=== PATIENT | male | born 1955 | race Caucasian/White ===

== ENCOUNTER 2016-10-24 16:57 | Emergency (ER) | payer OTHER ==
[~2016-10-24] VITALS: Ht 177.8 cm; Wt 86.2 kg
[~2016-10-24 16:57] MED LIST: ASPIRIN EC325 M1 PO; ATENOLOL25 MG PO; CLARITIN-D 10 M1 T24 PO; CO-Q-10 100 MG-1 SGL PO; CYMBALTA30 MG PO; LISINOPRIL/HCTZ1 TA3 PO; LOTRISONE 0.05%1 CRE TP; NORVASC 5MG. TAB5 MG PO; PLAVIX 75MG TAB75 MG PO; PRAVACHOL 40MG40 MG PO; TYLENOL PM EXTR1 TAB PO
--- NOTE | 2016-10-24 18:21 | Emergency Room Report ---
History of Present Illness Time Seen by [id number] Presenting Problem in Triage Pt arrived: Presenting Problem: Onset of symptoms date/time:/ or onset unknown for: Treatment Prior to Arrival: [employer] L[employer] Provided by: Sepsis Risk Assessment: Temp: B/P: MAP: Pulse: Resp: Recent fever? Clinical Suspician of Infection? Mental Status: Sepsis Risk: Have you (or family members/close friends) recently traveled outside the [place]? If Yes, where/when: Have you had exposure to infectious disease within the past month? TB? Other? Specify: Source patient, RN notes reviewed Exam Limitations no limitations Comment Severe pain in left flank and into lower abdomen while driving today from [place]. He thought he had possibly hurt his back yesterday while lifting stuff in his barn but no pain until today. History of blood in urine in past but never told he had a kidney stone. NO nausea or vomiting and no fever and no diarrhe. Cardiac Chest Pain Chest pain indicative of cardiac No ALLERGIES Coded Allergies: No Known Allergies (10/24/16) Home Medications Reported Medications Metformin HCl (Metformin) 500 MG PO BID Sertraline Hydrochloride (Sertraline 100MG) 100 MG PO DAILY PRAVASTATIN SODIUM (Pravastatin Sodium) 40 MG PO QHS Amlodipine Besylate (Norvasc) 5 MG PO DAILY Lisinopril & Hctz (Lisinopril-Hctz 10-12.5 MG Tab) 1 TAB PO DAILY History Medical History General Angina: No OK: Yes Hypertension? Yes Hyperlipidemia? Yes CHF? No COPD? No Asthma? No Hernia? Yes CVA? No Seizures? No Diabetes? No UTI? No Stones? No GB Disease: No Hepatitis? No Cataracts? Yes Glaucoma? No TB? No Cancer? No Immunization Hx DT/Tetanus UNKNOWN Flu THISFLUSEA Pneumonia Received In Past Surgical Hx Previous Surgery?Y RT HERNIA REPAIR SINUS SURGERY CARDIAC STENTS X2 Family History Family Hx Diabetes Yes CAD Yes Hypertension Yes Hyperlipidemia No Cancer Yes TB No Social History Alcohol Alcohol: No Review of Systems All Other Systems Reviewed and Negative Constitutional see HPI Gastrointestinal see HPI Musculoskeletal see HPI Physical Exam Vital Signs Vital Signs Date Time Temp Pulse Resp B/P Pulse O2 O2 Flow FiO2 Ox Delivery Rate 10/24 1905 18 10/24 1850 98.5 65 18 140/76 96 General Appearance normal appearance, WD/WN, mild distress Respiratory Status No: respiratory distress. 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 Yes Chan was queried for this patient? Yes Reference #: [id number] Risks/benefits of using a controlled substance for treatment were not discussed w/pt Results/Orders Laboratory Tests 10/24/161834: Sodium 140, Potassium 3.4 L, Chloride 102, Carbon Dioxide 30, BUN 16, Creatinine 1.3, Estimated Creat Clear 71, Estimated GFR (MDRD) 56, Glucose 179 H, Calcium 8.5, Total Bilirubin 0.5, AST 14 L, ALT 26, Alkaline Phosphatase 91, Total Protein 6.2 L, Albumin 3.6, Globulin 2.6, Albumin/Globulin Ratio 1.4, WBC 10.6, RBC 5.13, Hgb 14.3, Hct 44.3, MCV 86.3, RDW 15.1, Plt Count 172, MPV 8.7, Gran % 86.7 H, Gran # 9.2 H, Total Counted 100, Lymphocytes % 7.0 L, Monocytes % 5.0, Eosinophils % 1.0, Basophils % 0.3, Neutrophils 83 H, Lymphocytes (Manual) 12, Lymphocytes # 0.7, Monocytes (Manual) 4, Monocytes # 0.5, Eosinophils # 0.1, Basophils # 0.0, Metamyelocytes 1, Platelet Estimate NORMAL, Poikilocytosis 1+, PUBS MCHC 32.3, MCH 27.9 Current Medication Orders Sig/Jai Start time Last Medication Dose Route Stop Time Status Admin Ketorolac 0 .STK-MED ONE 10/24 1902 DC Tromethamine .ROUTE Sodium Chloride 1,000 ML .STK-MED ONE 10/24 1901 DC IV Ketorolac 30 MG ONCE ONE 10/24 183 DC 10/24 Tromethamine IV 10/24 183 1905 Sodium Chloride 10 ML PRN PRN 10/24 1830 AC IV 10/25 181 Sodium Chloride 1,000 ML .Q4H 10/24 1830 AC 10/24 IV 10/24 2229 1906 Sodium Chloride 10 ML PRN PRN 10/24 1830 AC IV 10/25 181 Orders Procedure Date/time Status DIET-NOTHING BY MOUTH 10/25 B Active DIFFERENTIAL-WBC 10/[address] ABD & PELVIS W/O CONTRAST 10/[address] ABD/PELVIS REQ 10/24 1819 Complete IV SALINE LOCK 10/24 1819 Active URINALYSIS/COMPLETE 10/24 1819 Active CBC WITH AUTO DIFF 10/24 1819 Complete CHEM 12 PROFILE 10/24 1819 Complete XRAY/CT/US XRAY/CT/US CT abdomen, pelvis CT interpretation by reviewed by me Time results known: 1947 CT Results ? 5 to 6 mm stone in left mid ureter with left hydronephrosis Departure Departure Time of Disposition 1948 Disposition DC Home or Self Care(routine) Clinical Impression Primary Impression: Left ureteral stone Condition STABLE Referrals Devante BOSCH,Agnieszka Miller (Family): 4 Days-Call Office Patient Instructions DI for Kidney Stones, Extracorporeal Shock Wave Lithotripsy , Kidney Stones (Alternative Therapy), Kidney Stones -- Adult Additional Instructions Strain all urine and if stone is caught, take to PCP to send for analysis. Use meds as directed and if pain recurs, followup with Urologist JAIME Discharge Counseling Counseled pt/family regarding diagnosis, test results, medications/RX, home care, follow up needs Prescriptions Current Visit Scripts OXYCODONE HCL/ACETAMINOPHEN (Percocet 5-325 MG Tablet) 1 TAB PO Q4HP PRN pain #20 TAB ED Critical Care Critical Care No If Critical Care minutes are documented, the time involved in the performance of seperately reportable procedures was not counted toward critical care time documented. I directly delivered medical care to this critically ill and/or injured patient. Timely evaluation and treatment was necessary to address the significant organ system(s) dysfunction present in this patient. at 1953
--- NOTE | 2016-10-24 18:21 | Emergency Room Report ---
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 Clinical Suspician of Infection? Mental Status: Sepsis Risk: Have you (or family members/close friends) recently traveled outside the [place]? If Yes, where/when: Have you had exposure to infectious disease within the past month? TB? Other? Specify: Source patient, RN notes reviewed Exam Limitations no limitations Comment Severe pain in left flank and into lower abdomen while driving today from [place]. He thought he had possibly hurt his back yesterday while lifting stuff in his barn but no pain until today. History of blood in urine in past but never told he had a kidney stone. NO nausea or vomiting and no fever and no diarrhe. Cardiac Chest Pain Chest pain indicative of cardiac No ALLERGIES Coded Allergies: No Known Allergies (10/24/16) Home Medications Reported Medications Metformin HCl (Metformin) 500 MG PO BID Sertraline Hydrochloride (Sertraline 100MG) 100 MG PO DAILY PRAVASTATIN SODIUM (Pravastatin Sodium) 40 MG PO QHS Amlodipine Besylate (Norvasc) 5 MG PO DAILY Lisinopril & Hctz (Lisinopril-Hctz 10-12.5 MG Tab) 1 TAB PO DAILY History Medical History General Angina: No AL: Yes Hypertension? Yes Hyperlipidemia? Yes CHF? No COPD? No Asthma? No Hernia? Yes CVA? No Seizures? No Diabetes? No UTI? No Stones? No GB Disease: No Hepatitis? No Cataracts? Yes Glaucoma? No TB? No Cancer? No Immunization Hx DT/Tetanus UNKNOWN Flu THISFLUSEA Pneumonia Received In Past Surgical Hx Previous Surgery?Y RT HERNIA REPAIR SINUS SURGERY CARDIAC STENTS X2 Family History Family Hx Diabetes Yes CAD Yes Hypertension Yes Hyperlipidemia No Cancer Yes TB No Social History Alcohol Alcohol: No Review of Systems All Other Systems Reviewed and Negative Constitutional see HPI Gastrointestinal see HPI Musculoskeletal see HPI Physical Exam Vital Signs Vital Signs Date Time Temp Pulse Resp B/P Pulse O2 O2 Flow FiO2 Ox Delivery Rate 10/24 1905 18 10/24 1850 98.5 65 18 140/76 96 General Appearance normal appearance, WD/WN, mild distress Respiratory Status No: respiratory distress. 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 Yes Chan was queried for this patient? Yes Reference #: [id number] Risks/benefits of using a controlled substance for treatment were not discussed w/pt Results/Orders Laboratory Tests 10/24/161834: Sodium 140, Potassium 3.4 L, Chloride 102, Carbon Dioxide 30, BUN 16, Creatinine 1.3, Estimated Creat Clear 71, Estimated GFR (MDRD) 56, Glucose 179 H, Calcium 8.5, Total Bilirubin 0.5, AST 14 L, ALT 26, Alkaline Phosphatase 91, Total Protein 6.2 L, Albumin 3.6, Globulin 2.6, Albumin/Globulin Ratio 1.4, WBC 10.6, RBC 5.13, Hgb 14.3, Hct 44.3, MCV 86.3, RDW 15.1, Plt Count 172, MPV 8.7, Gran % 86.7 H, Gran # 9.2 H, Total Counted 100, Lymphocytes % 7.0 L, Monocytes % 5.0, Eosinophils % 1.0, Basophils % 0.3, Neutrophils 83 H, Lymphocytes (Manual) 12, Lymphocytes # 0.7, Monocytes (Manual) 4, Monocytes # 0.5, Eosinophils # 0.1, Basophils # 0.0, Metamyelocytes 1, Platelet Estimate NORMAL, Poikilocytosis 1+, PUBS MCHC 32.3, MCH 27.9 Current Medication Orders Sig/Jai Start time Last Medication Dose Route Stop Time Status Admin Ketorolac 0 .STK-MED ONE 10/24 1902 DC Tromethamine .ROUTE Sodium Chloride 1,000 ML .STK-MED ONE 10/24 1901 DC IV Ketorolac 30 MG ONCE ONE 10/24 183 DC 10/24 Tromethamine IV 10/24 183 1905 Sodium Chloride 10 ML PRN PRN 10/24 1830 AC IV 10/25 181 Sodium Chloride 1,000 ML .Q4H 10/24 1830 AC 10/24 IV 10/24 2229 1906 Sodium Chloride 10 ML PRN PRN 10/24 1830 AC IV 10/25 181 Orders Procedure Date/time Status DIET-NOTHING BY MOUTH 10/25 B Active DIFFERENTIAL-WBC 10/[address] ABD & PELVIS W/O CONTRAST 10/[address] ABD/PELVIS REQ 10/24 1819 Complete IV SALINE LOCK 10/24 1819 Active URINALYSIS/COMPLETE 10/24 1819 Active CBC WITH AUTO DIFF 10/24 1819 Complete CHEM 12 PROFILE 10/24 1819 Complete XRAY/CT/US XRAY/CT/US CT abdomen, pelvis CT interpretation by reviewed by me Time results known: 1947 CT Results ? 5 to 6 mm stone in left mid ureter with left hydronephrosis Departure Departure Time of Disposition 1948 Disposition DC Home or Self Care(routine) Clinical Impression Primary Impression: Left ureteral stone Condition STABLE Referrals Devante BOSCH,Agnieszka Miller (Family): 4 Days-Call Office Patient Instructions DI for Kidney Stones, Extracorporeal Shock Wave Lithotripsy , Kidney Stones (Alternative Therapy), Kidney Stones -- Adult Additional Instructions Strain all urine and if stone is caught, take to PCP to send for analysis. Use meds as directed and if pain recurs, followup with Urologist JAIME Discharge Counseling Counseled pt/family regarding diagnosis, test results, medications/RX, home care, follow up needs Prescriptions Current Visit Scripts OXYCODONE HCL/ACETAMINOPHEN (Percocet 5-325 MG Tablet) 1 TAB PO Q4HP PRN pain #20 TAB ED Critical Care Critical Care No If Critical Care minutes are documented, the time involved in the performance of seperately reportable procedures was not counted toward critical care time documented. I directly delivered medical care to this critically ill and/or injured patient. Timely evaluation and treatment was necessary to address the significant organ system(s) dysfunction present in this patient. at 1953
[2016-10-24 18:47] LABS: HEMOGLOBIN 14.3 g/dL (14.1-18.0); LYMPH # 0.7 K/mm3 (0.7-4.5)
[2016-10-24] MEDS ORDERED: METFORMIN 500M500 M1 PO (18:57)
[2016-10-24] MEDS ORDERED: SERTRALINE 100100 MG PO (18:58)
[2016-10-24 19:42] LABS: NEUTROPHILS 83 % (42-76)
[2016-10-24] MEDS ORDERED: PERCOCET1 TAB PO (19:51)
[2016-10-24 19:59] LABS: URINE BILIRUBIN - DIPSTICK NEGATIVE (NEG); URINE BLOOD 3+ (NEG)
[2016-10-24 20:16] VITALS: BP 161/90
--- NOTE | 2016-10-25 07:50 | RADIOLOGY REPORT PS360 ---
CT ABD PELVIS W/O CONTRAST CLINICAL INDICATION: Left flank pain FLANK PAIN ORDERING PHYSICIAN: Caroline Ospina MD PATIENT AGE: 61 years COMPARISON: 07/14/2013 TECHNIQUE: Axial images obtained with sagittal and coronal reformats. PROCEDURE: Oral Contrast: None IV Contrast: None . FINDINGS: Lower thorax: 2 noncalcified nodules left lower lobe stable 4 and 6 mm ABDOMEN: Liver: Stable 12 mm isodense nodule involving the right hepatic lobe at the gallbladder fossa Gallbladder: Nondistended. No radio opaque stones. Pancreas: No masses or peripancreatic fluid collections. Spleen: Unremarkable. Adrenals: Unremarkable Kidneys/ureters: 3 cm left renal cyst superiorly. Mild left hydronephrosis and proximal hydroureter secondary to a 5 mm stone in the proximal mid aspect of the left ureter at the L3-L4 level. There is mild stranding in the left perinephric and proximal periureteral fat. Nonobstructing right nephrolithiasis. Stomach bowel: Small gastric diverticulum. Colonic diverticulosis Appendix: No evidence of appendicitis. PELVIS: Reproductive: Unremarkable Bladder: Nondistended. No obvious stones or masses. ABDOMEN & PELVIS: Peritoneum: No abnormal fluid collections. No obvious inflammatory changes. No free air. Lymph nodes: No enlarged lymph nodes apparent. Vasculature: No evidence of abdominal aortic aneurysm. No retroperitoneal hemorrhage evident. Bones: No acute fracture Soft tissues: Soft tissue density is present in the left inguinal region probably related to prior inguinal surgery IMPRESSION: 1. 5 mm left mid proximal ureteral stone with hydroureteronephrosis and mild stranding of the perinephric and periureteral fat suggesting underlying inflammation/infection 2. Right nephrolithiasis. 3. Other nonacute findings as detailed above
== END 2016-10-24 20:17 | disposition home or self-care (01) ==
LOC: UTC 16:57 → ER 17:00 → UTC 17:00 → ER 20:17
PROVIDERS: General Practice
DX: N13.2 Hydronephrosis with renal and ureteral calculous obstruction (principal); I10 Essential (primary) hypertension

== ENCOUNTER → 2016-10-30 | Outpatient (CLI) | payer OTHER ==
[~2016-10-30] MED LIST changes: +METFORMIN 500M500 M1 PO; +PERCOCET1 TAB PO; +SERTRALINE 100100 MG PO
--- NOTE | 2016-10-30 11:22 | RADIOLOGY REPORT PS360 ---
CT ABD PELVIS W/O CONTRAST CLINICAL INDICATION: Follow-up left renal stone, left flank pain LEFT FLANK PAIN ORDERING PHYSICIAN: Agnieszka Low MD PATIENT AGE: 61 years COMPARISON: [id number] TECHNIQUE: Axial images obtained with sagittal and coronal reformats. PROCEDURE: Oral Contrast: None IV Contrast: None . FINDINGS: There is been overall no significant change in the mid left ureteral stone measuring probably 5 mm in the mid left ureter at the L2 4 level. The stone may have moved distally x 1 cm. There remains moderate left hydronephrosis and proximal hydroureter with stranding of the perirenal and proximal periureteral fat overall not significantly changed. A right renal calculus noted. Scattered small nodes are present in the mesentery's. No change bilateral lower lobe pulmonary nodules, gastric diverticulum, left renal cyst, scattered small nodes in the mesentery's, small periumbilical hernia, sigmoid diverticulosis. No evidence of diverticulitis or appendicitis. IMPRESSION: 1. Overall no significant change in the left mid ureteral stone with hydroureteronephrosis as described above.. 2. Other nonacute findings as described above
== END ==
LOC: RAD 07:59
DX: N20.0 Calculus of kidney (principal)

== ENCOUNTER → 2017-07-28 | Outpatient (CLI) | payer OTHER ==
--- NOTE | 2017-07-28 19:41 | RADIOLOGY REPORT PS360 ---
PROCEDURE: 2-D M-mode and color Doppler study INDICATIONS FOR THE TEST: Chest pain X COPD Heart Murmur Tobacco Smoking Palpitations Fatigue Syncope Edema HypertensionXDiabetes MellitusX Rheumatic Fever SOBXDOE Obesity HyperlipidemiaX Family History HD Additional History CAD PATIENT INFORMATION HEIGHT: 70 WEIGHT:195 GENDER: Male B/P:120/80 2-D/M-MODE INTERPRETATION: 2-D MEASUREMENTS OBSERVED VALUES IN CMS Right Ventricular Dimension (RVDd) 1.7 Interventricular Septum (Thickness)(IVsd) 1.1 Left Ventricular Internal Dimensions(LVIDd) 5.7 Left Ventricular Posterior Wall (Thickness)(LVPWd) 1.1 Aortic Root 3.3 Aortic Cusp Separation 1.9 Left Atrial Dimensions (LAD) 4.0 2D 1. Left atrium is mildly enlarged, left ventricle is normal size, mild concentric left ventricular hypertrophy present visually estimated ejection fraction of 55% with no obvious regional wall motion abnormality. 2. The right atrium and right ventricle are normal size and contractility. 3. The aortic valve is minimally thickened and fibrosed. 4. The mitral and tricuspid valvular grossly normal. 5. Pulmonic valve is poorly visualized. 6. No significant pericardial effusion noted. DOPPLER INTERROGATION: Doppler interrogation of the aortic, mitral and tricuspid valvular presence of mild mitral and tricuspid regurgitation, tricuspid and jet velocity is insufficient for calculation of the right ventricular systolic pressure, grade 1 diastolic dysfunction seen without tissue Doppler evidence of raised left atrial pressure. CONCLUSION: 1. Mildly enlarged left atrium, normal left ventricular size, mild concentric left ventricular hypertrophy, visually estimated ejection fraction 55% with no obvious regional wall motion abnormality, grade 1 diastolic dysfunction seen without tissue Doppler evidence of raised left atrial pressure. 2. Mild mitral and tricuspid regurgitation. 3. No significant pericardial effusion noted.
--- NOTE | 2017-07-30 11:33 | RADIOLOGY REPORT PS360 ---
SPECT MYOCARDIAL PERFUSION SCAN, REST AND STRESS: EXERCISE STRESS: [facility] REVIEW QGS EF AND WALL MOTION EVALUATION: QPS - PERFUSION EVALUATION: HISTORY: Chest pain, Abnormal EKG, HTN, CAD PROCEDURE: Rest imaging performed after administration of9.90 millicuries Tc MIBI. Dose administered at7:20 a.m., with imaging thereafter. Stress imaging was then performed following8 minutes of exercise stress. The patient achieved a heart [id number] with projected heart rate of133 . Resting BP168/85 with stress 192/88. At maximum exercise stress,30.0 millicuries Tc MIBI administered at9:00 a.m. with [id number] minutes thereafter. FINDINGS: Perfusion Evaluation: The single slice spect images as well as the [facility] bull's-eye data summary were reviewed. Wall Motion and Ejection Fraction Evaluation: Gated SPECT review and analysis used to evaluate these features. There is a 61 % left ventricular ejection fraction. There seems to be good wall motion Patient exercised 8 minutes on standard José Miguel protocol. EKG portion of this test was abnormal with ST segment depression at peak exercise which worsened late into recovery which was accompanied by short bursts of nonsustained ventricular tachycardia multiple PVCs. Ventricular ectopy PVCs couplets and triplets were accompanied x 2 mm of horizontal to downsloping ST depression in the left precordial leads. This is an abnormal high risk exercise stress test Stress images reveal moderately to severely reduced activity in the inferior wall while rest images reveal severely reduced activity in the inferior wall. Gated images calculated ejection fraction of 62% with normal wall motion IMPRESSION: This is an abnormal high risk stress test with significant reverse redistribution in the inferior wall. Exercise-induced nonsustained ventricular tachycardia with significant exercise induced ST segment depression
--- NOTE | 2017-07-30 11:33 | RADIOLOGY REPORT PS360 ---
SPECT MYOCARDIAL PERFUSION SCAN, REST AND STRESS: EXERCISE STRESS: [facility] REVIEW QGS EF AND WALL MOTION EVALUATION: QPS - PERFUSION EVALUATION: HISTORY: Chest pain, Abnormal EKG, HTN, CAD PROCEDURE: Rest imaging performed after administration of9.90 millicuries Tc MIBI. Dose administered at7:20 a.m., with imaging thereafter. Stress imaging was then performed following8 minutes of exercise stress. The patient achieved a heart [id number] with projected heart rate of133 . Resting BP168/85 with stress 192/88. At maximum exercise stress,30.0 millicuries Tc MIBI administered at9:00 a.m. with [id number] minutes thereafter. FINDINGS: Perfusion Evaluation: The single slice spect images as well as the [facility] bull's-eye data summary were reviewed. Wall Motion and Ejection Fraction Evaluation: Gated SPECT review and analysis used to evaluate these features. There is a 61 % left ventricular ejection fraction. There seems to be good wall motion Patient exercised 8 minutes on standard José Miguel protocol. EKG portion of this test was abnormal with ST segment depression at peak exercise which worsened late into recovery which was accompanied by short bursts of nonsustained ventricular tachycardia multiple PVCs. Ventricular ectopy PVCs couplets and triplets were accompanied x 2 mm of horizontal to downsloping ST depression in the left precordial leads. This is an abnormal high risk exercise stress test Stress images reveal moderately to severely reduced activity in the inferior wall while rest images reveal severely reduced activity in the inferior wall. Gated images calculated ejection fraction of 62% with normal wall motion IMPRESSION: This is an abnormal high risk stress test with significant reverse redistribution in the inferior wall. Exercise-induced nonsustained ventricular tachycardia with significant exercise induced ST segment depression
== END ==
LOC: RAD 06:55
DX: I20.9 Angina pectoris, unspecified (principal); I25.10 Atherosclerotic heart disease of native coronary artery without angina pectoris; I10 Essential (primary) hypertension; E78.5 Hyperlipidemia, unspecified; R53.83 Other fatigue; G47.33 Obstructive sleep apnea (adult) (pediatric); R94.31 Abnormal electrocardiogram [ECG] [EKG]
CPT/HCPCS: A9502

== ENCOUNTER → 2017-08-06 | Day surgery (SDC) | payer OTHER ==
[2017-08-06 07:54] LABS: HEMOGLOBIN 14.8 g/dL (14.1-18.0); LYMPH # 1.6 K/mm3 (0.7-4.5); LYMPH % 22.1 % (10-50)
[2017-08-06 08:02] LABS: BUN 9 mg/dL (7-18)
[2017-08-06 08:05] LABS: GFR (ESTIMATED) 85 ML/MIN (>60)
--- NOTE | 2017-08-06 09:11 | RADIOLOGY REPORT PS360 ---
CARDIAC CATHETERIZATION DATE OF CATHETERIZATION:08/06/2017 8:26 AM PROCEDURES: 1. Left heart catheterization 2. Left ventriculogram 3. Selective coronary angiogram 4. Drug-eluting stent deployment to the proximal mid ramus intermedius 5. Drug-eluting stent deployment to the mid dominant right coronary artery INDICATION FOR TEST: 1. Abnormal Myoview inferior wall ischemia 2. Coronary artery disease 3. Angina pectoris class III Informed consent was obtained prior to the procedure. COMPLICATIONS: None ESTIMATED BLOOD LOSS: Less than 10 ml. TECHNIQUE: One percent lidocaine used to anesthetize the right anterior aspect of the wrist. The right radial artery was accessed via the Seldinger technique. A 6 [place] sheath was placed in the right radial artery. 2.5 mg of verapamil, 800 mcg of nitroglycerin and 5000 U Heparin were given through the arterial sheath. The trap catheter was also used to perform left heart catheterization left ventriculogram and selective coronary angiogram. At the end of the diagnostic angiogram 4000 units of heparin was administered intravenously giving an ACT out of range. An Genprexari left guide catheter was placed into the left main artery and order to complete the diagnostic angiogram. Following this, a BMW wire was placed into the ramus intermedius and a 2.25 x 3 mm resolute [place] stent was deployed at 22 lisandro reducing the moderate and severe stenosis to 0%. ROSA ISELA-3 flow was present before and after the procedure. Following this the guide catheter was placed into the right coronary artery and the BMW wire was placed distally. A 3 mm x 38 mm resolute [place] stent was deployed at 20 lisandro reducing the hemodynamically severe stenosis to 0%. Excellent angiographic results were obtained with ROSA ISELA-3 flow down the vessel before and after the procedure. At the end of the procedure sheath was removed good hemostasis was achieved using TR banding patient transferred the postop holding area in stable condition. Brilinta 180 mg has ordered the saphenous patient is awake and able to tolerate by mouth. ANGIOGRAPHIC RESULTS: 1. The left main artery normal 2. The left anterior descending artery has very proximal 10% stenoses and then mid vessel diffuse 40% stenoses. 3. The ramus intermedius is a large vessel and has very proximal 50% stenoses followed by a focal concentric 70-80% stenosis followed by an additional 50% stenosis 4. The circumflex artery is a nondominant vessel has proximal 30-40% and mid vessel 30% stenoses 5. The right coronary artery is a dominant vessel and has a stent in the proximal segment which is widely patent free of in-stent restenosis. Distal to the stent there is a concentric 60-70% stenosis followed by additional 40% stenoses 6. The ROSS ventriculogram reveals normal 65% 7. The left ventricular end-diastolic pressure 10 mmHg IMPRESSION: 1. Severe 2 vessel coronary artery disease involving the dominant right coronary artery and the large ramus intermedius as described above 2. Successful stenting of the proximal to mid ramus intermedius severe disease reduced to 0% with 1 drug-eluting stent 3. Hemodynamically severe disease with corresponding abnormal inferior wall ischemia on Myoview combined with 60-70% stenosis of the dominant right coronary artery reduced to 0% with 1 drug-eluting stent 4. Persistent moderate coronary disease as described above 5. Normal ejection fraction 6. Normal left ventricular end-diastolic pressure PLAN: 1. Brilinta and aspirin 2. LDL less than 55 3. Very aggressive risk factor modification 4. Cardiac rehabilitation 5. Avoidance of tobacco products
[2017-08-06 14:43] VITALS: BP 140/75
== END ==
LOC: CATHLAB 07:22
PROVIDERS: Internal Medicine; Internal Medicine Cardiovascular Disease
PROC: B2111ZZ Fluoroscopy of Multiple Coronary Arteries using Low Osmolar Contrast (ICD-10-PCS; 2017-08-06)
PROC: B2151ZZ Fluoroscopy of Left Heart using Low Osmolar Contrast (ICD-10-PCS; 2017-08-06)
PROC: 027135Z Dilation of Coronary Artery, Two Arteries with Two Drug-eluting Intraluminal Devices, Percutaneous Approach (ICD-10-PCS; 2017-08-06)
PROC: 4A023N7 Measurement of Cardiac Sampling and Pressure, Left Heart, Percutaneous Approach (ICD-10-PCS; principal; 2017-08-06 09:45)
DX: I25.118 Atherosclerotic heart disease of native coronary artery with other forms of angina pectoris (principal); Z72.0 Tobacco use; R94.39 Abnormal result of other cardiovascular function study; I10 Essential (primary) hypertension; I50.30 Unspecified diastolic (congestive) heart failure
CPT/HCPCS: C1725; C1769; C1876; J1644; Q9967